=== PATIENT | male | born 1995 | race Hispanic/Latino ===

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

== ENCOUNTER 2017-07-26 12:50 | Emergency (ER) | payer BC ==
[2017-07-26 13:08] VITALS: RESP 18; TEMP 98; O2SAT 100
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
[2017-07-26 15:47] VITALS: BP 117/72; PULSE 73
== END 2017-07-26 15:47 | disposition home or self-care (01) ==
LOC: H.ER 12:50
DX: S40.212A Abrasion of left shoulder, initial encounter (principal); V88.8XXA Person injured in other specified noncollision transport accidents involving motor vehicle, nontraffic, initial encounter
CPT/HCPCS: 73030; 73060; 73080; 96372; 99283; J0690